=== PATIENT | male | born 2005 | race Caucasian/White ===

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

== ENCOUNTER 2024-05-01 12:37 | Emergency (ER) | payer MEDICAID, OTHER ==
[2024-05-01 12:43] VITALS: BP 112/75; O2SAT 100
--- NOTE | 2024-05-01 12:49 | ED Physician Documentation ---
History of Present Illness - Stated complaint Stated Complaint: OUT OF INSULIN - Chief complaint Chief Complaint: General - History obtained from History obtained from: Patient - History of Present Illness Timing: Today (he will be running out of his insulin today after regular doses. Tried local clinic appt for new PCP but no soon appts. [facility] not open today on [facility].) PD PAST MEDICAL HISTORY - Past Medical History Past Medical History: Yes Cardiovascular: None Respiratory: None Neuro: None Endocrine/Autoimmune: Type 1 diabetes GI: None : Nocturia HEENT: None Psych: Depression, Anxiety Musculoskeletal: None Derm: None - Past Surgical History Past Surgical History: No - Present Medications Home Medications: Ambulatory Orders Medication Instructions Recorded Confirmed Ibuprofen [Motrin] 400 mg PO TID PRN 06/22/16 05/01/24 Insulin Degludec 13 unit SUBQ DAILY PM #10 ml 05/01/24 Insulin Lispro 5 - 10 unit SQ TID #10 ml 05/01/24 Insulin Lispro [Admelog Solostar] 5 - 10 unit SQ TIDWM 05/01/24 05/01/24 - Allergies Allergies/Adverse Reactions: Allergies Allergy/AdvReac Type Severity Reaction Status Date / Time No Known Drug Allergies Allergy Verified 05/01/24 12:40 - Social History Does the pt smoke?: No Smoking Status: Never smoker Does the pt drink ETOH?: Yes Does the pt have substance abuse?: Yes Substance Use and Type: Marijuana - Immunizations Immunizations are current?: Yes - POLST Patient has POLST: No Results - Vitals Vitals: Vital Signs - 24 hr 05/01/24 12:40 Temperature 37.2 C Heart Rate 88 Respiratory 16 Rate Blood Pressure 112/75 O2 Saturation 100 Oxygen O2 Source Room air PD Medical Decision Making - ED course Complexity details: considered differential (diabetic and usually good control of sugars. Here for Rx refill. He states he uses bottles of insulin and not pens due to cost and insurance coverage. Moved to [facility] last week and trying to get new PCP. ), d/w patient Departure - Departure Disposition: 01 Home, Self Care Clinical Impression: Diabetes mellitus, Encounter for medication refill Condition: Stable Record reviewed to determine appropriate education?: Yes Follow-Up: [facility] [place] [Provider Group] [facility] [place] [Provider Group] [facility] [Provider Group] Prescriptions: Insulin Degludec 13 unit SUBQ DAILY PM #10 ml Insulin Lispro 5 - 10 unit SQ TID #10 ml Comments: Continue with your usual insulins. I wrote prescriptions for them and sent them to [facility] pharmacy. I attached the names and numbers of a couple of the clinics in [place]. Call and see who has space available for new patients and takes your insurance etc. Stay well-hydrated and normal diet otherwise. Forms: PCP List Discharge Date/Time: 05/01/24 13:14
== END 2024-05-01 13:14 | disposition home or self-care (01) ==
LOC: ED 12:37
DX: E10.9 Type 1 diabetes mellitus without complications (principal); Z79.4 Long term (current) use of insulin; Z76.0 Encounter for issue of repeat prescription
CPT/HCPCS: 99282; 99283